=== PATIENT | male | born 1965 | race Caucasian/White ===

== ENCOUNTER 2021-06-10 15:57 | Emergency (ER) | payer OTHER ==
[~2021-06-10 15:57] MED LIST: AUGMENTIN TAB875 MG PO; LORTAB 5-325 M1 EACH PO; METFORMIN HCL500 MG PO; NEURONTIN800 MG PO; PRILOSEC20 MG PO
[2021-06-10 17:23] LABS: HEMOGLOBIN 11.6 gm/dl (14.0-17.5); RED BLOOD COUNT 3.88 M/UL (4.20-5.50); WHITE BLOOD COUNT 8.4 K/UL (4.5-11.0)
[2021-06-10 17:43] LABS: BUN/CREATININE RATIO 11 (0-10)
== END 2021-06-11 01:51 | disposition home or self-care (01) ==
LOC: ER1 15:57
PROVIDERS: Physician Assistant Medical
DX: N13.30 Unspecified hydronephrosis (principal); R41.0 Disorientation, unspecified; R26.89 Other abnormalities of gait and mobility; R26.2 Difficulty in walking, not elsewhere classified; E11.51 Type 2 diabetes mellitus with diabetic peripheral angiopathy without gangrene; E78.5 Hyperlipidemia, unspecified; Z95.1 Presence of aortocoronary bypass graft; Z95.5 Presence of coronary angioplasty implant and graft; Z79.01 Long term (current) use of anticoagulants; Z87.891 Personal history of nicotine dependence; Z79.4 Long term (current) use of insulin
CPT/HCPCS: 70450; 75635; 80053; 81001; 83690; 85025; 85610; 85730; 99284; Q9967

== ENCOUNTER 2021-11-01 20:02 | Emergency (ER) | payer OTHER ==
[2021-11-01 21:23] LABS: HEMOGLOBIN 14.5 gm/dl (14.0-17.5); RED BLOOD COUNT 4.62 M/UL (4.20-5.50); WHITE BLOOD COUNT 14.5 K/UL (4.5-11.0)
[2021-11-01 21:43] LABS: BUN/CREATININE RATIO 12 (0-10)
== END 2021-11-01 23:16 | disposition left against medical advice (07) ==
LOC: ER1 20:02
PROVIDERS: Nurse Practitioner
DX: R20.0 Anesthesia of skin (principal); E11.9 Type 2 diabetes mellitus without complications; Z87.891 Personal history of nicotine dependence
CPT/HCPCS: 73630; 80053; 85025; 99283